=== PATIENT | female | born 1970 | race Caucasian/White ===

== ENCOUNTER 2021-08-18 11:00 | Outpatient (RCR) | payer OTHER, SELFPAY ==
[2021-08-18] MEDS: diphenhydrAMINE HCl CAP 25 MG CAPSULE PO (13:26)
[2021-08-18] MEDS: ACETAMINOPHEN 325 MG TABLET 650 MG PO (13:26)
[2021-08-18] MEDS: FAMOTIDINE 20 MG TABLET PO (13:27)
[2021-08-18 13:30] VITALS: BP 124/73; PULSE 86; RESP 20; TEMP 36.7; O2SAT 97
[2021-08-18 14:51] VITALS: BP 119/76; PULSE 70; O2SAT 99
== END 2021-08-18 16:00 ==
LOC: AMCINF 11:00
PROVIDERS: PCP Internal Medicine; Visit Provider Internal Medicine Hematology & Oncology
DX: U07.1 COVID-19 (principal)
CPT/HCPCS: A9270; M0243; Q0244